=== PATIENT | female | born 1955 | race Caucasian/White ===

== ENCOUNTER 2018-08-21 15:58 | Outpatient (CLI) | payer BC | END 2018-08-21 15:59 | disposition home or self-care (01) | LOC: BICMAMMO 15:58 | PROVIDERS: ATTEND Obstetrics & Gynecology | DX: Z12.31 Encounter for screening mammogram for malignant neoplasm of breast (principal) | CPT/HCPCS: 77063; 77067 ==

== ENCOUNTER 2019-09-10 15:54 | Outpatient (CLI) | payer BC ==
--- NOTE | 2019-09-10 16:33 | MMO ---
Bilateral MAMMO Bilat Screen [facility]. CLINICAL HISTORY: Patient is 64 years old and is seen for screening. The patient has no family history of breast cancer. The patient has a history of cervical cancer at age 26. The patient has a history of left Ultrasound Guided Core Biopsy in 2017 - benign. VIEWS: The views performed were: bilateral craniocaudal with tomosynthesis and bilateral mediolateral oblique with tomosynthesis. FILMS COMPARED: The present examination has been compared to prior imaging studies performed at [facility] on 10/01/2008, and at [facility] on 03/16/2017, 03/23/2017 and 08/21/2018. This study has been interpreted with the assistance of computer-aided detection. MAMMOGRAM FINDINGS: There are scattered fibroglandular densities. There is a stable biopsy clip seen in the left breast. There are no suspicious masses, suspicious calcifications, or new areas of architectural distortion. IMPRESSION: THERE IS NO MAMMOGRAPHIC EVIDENCE OF MALIGNANCY. A ROUTINE FOLLOW-UP MAMMOGRAM IN 1 YEAR IS RECOMMENDED. THE RESULTS OF THIS EXAM WERE SENT TO THE PATIENT. ACR BI-RADS Category 2 - Benign finding MAMMOGRAPHY NOTE: 1. A negative mammogram report should not delay a biopsy if a dominant of clinically suspicious mass is present. 2. Approximately 10% to 15% of breast cancers are not detected by mammography. 3. Adenosis and dense breasts may obscure an underlying neoplasm. Reported by: HALLE PELAEZ MD Electonically Signed: [id number]
== END 2019-09-10 15:55 | disposition home or self-care (01) ==
LOC: BICMAMMO 15:54
PROVIDERS: ATTEND Family Medicine
DX: Z12.31 Encounter for screening mammogram for malignant neoplasm of breast (principal)
CPT/HCPCS: 77063; 77067

== ENCOUNTER 2021-01-21 10:05 | Outpatient (CLI) | payer BC ==
--- NOTE | 2021-01-21 11:52 | MRI ---
MR the lumbar spine with and without contrast: 01/21/2021 History: Low back pain with radiating pain into bilateral thighs, bilateral lower extremity radiculop athy COMPARISON: 03/26/2014 TECHNIQUE: Multiplanar multisequence MR images were obtained of lumbar spine with and without IV cont rast FINDINGS: On the basis of 5 lumbar type vertebral bodies, conus medullaris terminates at theL1-2 level. The sagittal STIR imaging demonstrates no focal area of osseous marrow edema. T12-L1:Mild bilateral facet hypertrophy and disc space narrowing with no significant central canal or neural foraminal stenosis. L1-2:There is disc space narrowing with disc desiccation and mild disc space narrowing and mild disc bulge. Mild bilateral facet hypertrophy, left greater than right. No significant central canal or neural foraminal stenosis. L2-3:There is disc space narrowing and disc desiccation with mild bilateral facet hypertrophy. Mild b ilateral neural foraminal stenosis. No significant central canal stenosis. L3-4: Prominent bilateral facet hypertrophy and hypertrophy of the ligamentum flavum with fluid withi n bilateral facet joints. There is disc space narrowing with disc desiccation and mild disc bulge. There is severe central canal stenosis secondary to bilateral facet disease, disc bulge, and a medial ly projecting 4-5 mm synovial cyst emanating from the right facet joint. Moderate/severe right and mild left neural foraminal stenosis. L4-5: There is bilateral facet hypertrophy. There is disc space narrowing with disc desiccation and m ild disc bulge. Moderate/severe bilateral neural foraminal stenosis. No significant central canal stenosis. L5-S1: There is prominent facet hypertrophy bilaterally, especially on the right. There is disc space narrowing with disc desiccation and mild disc bulge. No central canal stenosis. Severe left and moderate/severe right neural foraminal stenosis. Image retroperitoneal structures demonstratemultiple incompletely assessed T2 hyperintense renal lesi ons most consistent with cysts. The postcontrast imaging of the lumbar spine demonstrates no abnormal enhancement involving the siena nts of the thecal sac, the imaged osseous structures, or the intervertebral discs. IMPRESSION: Multilevel degenerative change of the lumbar spine as detailed above.
[2021-01-21] MEDS ORDERED: Magnevist 469MG/ML 20 ML VIAL ONE (12:06)
--- NOTE | 2021-01-21 12:08 | RAD ---
Lumbar spine 5 views: 01/21/2021 HISTORY: Sharp pain from the back radiating into the legs FINDINGS: There is multilevel disc space narrowing with anterior and lateral osteophyte formation thr oughout the lumbar spine. Most prominent lateral osteophyte formation on the right is at L1-2 and on the left is at L2-3. There is disc space narrowing with degenerative endplate change and anterior osteophyte formation at L4-5 and L5-S1 with multilevel lower lumbar spine facet hypertrophic change. The neutral lateral examination demonstrates no anterolisthesis or retrolisthesis. On the flexion imaging there is anterolisthesis at L3-4 measuring 4-5 mm. No anterolisthesis or retro listhesis noted on the extension imaging. No acute fracture is evident. IMPRESSION: Multilevel lumbar spine degenerative change as detailed above. Flexion imaging demonstrat es 5 mm of anterolisthesis at L3-4.
== END 2021-01-21 10:06 | disposition home or self-care (01) ==
LOC: BICMRI 10:05
PROVIDERS: ATTEND Neurological Surgery
DX: M48.062 Spinal stenosis, lumbar region with neurogenic claudication (principal); M54.5 Low back pain; M47.816 Spondylosis without myelopathy or radiculopathy, lumbar region; M43.16 Spondylolisthesis, lumbar region
CPT/HCPCS: 72110; 72158; 82565; A9579

== ENCOUNTER 2021-03-02 11:22 | Outpatient (CLI) | payer BC ==
[2021-03-02 12:30] LABS: Hemoglobin 12.6 g/dL (12.0-15.5); Mean Corpuscular HGB CONC 31.1 g/dL (32.0-36.0); Mean Corpuscular Hemoglobin 28.1 pg (27.0-33.0); Mean Corpuscular Volume 90.4 fl (81.6-98.3); Mean Platelet Volume 10.3 fl (7.4-10.4); Platelet Count 261 10x3/uL (150-450); Red Blood Cell (RBC) Count 4.48 10x6/uL (3.90-5.03); White Blood Cell (WBC) Count 5.8 10x3/uL (3.5-10.5)
[2021-03-02 12:38] LABS: Anion Gap 12 mmol/L (10-20); BUN (Urea Nitrogen) 21 mg/dL (9.8-20.1); Calc. Creatinine Clearance 0 mL/min (70-130); Calcium 9.2 mg/dL (7.8-10.44); Carbon Dioxide 30 mmol/L (23-31); Chloride 103 mmol/L (98-107); Glucose 87 mg/dL (80-115); Potassium 4.6 mmol/L (3.5-5.1); Sodium 140 mmol/L (136-145)
[2021-03-02 21:22] LABS: SARS-CoV-2 PCR by NAA Not Detected (NotDetected)
== END 2021-03-02 11:23 | disposition home or self-care (01) ==
LOC: LABBT 11:22
PROVIDERS: ATTEND Neurological Surgery
DX: Z01.818 Encounter for other preprocedural examination (principal); Z20.822 Contact with and (suspected) exposure to COVID-19
CPT/HCPCS: 80048; 85027; 93005; 93010; U0003; U0005

== ENCOUNTER 2021-03-07 05:58 | Observation (INO) | payer BC ==
[2021-03-07] MEDS ORDERED: Fentanyl 100 MCG/2 ML VIAL ONE ×4 (06:54→10:07)
[2021-03-07] MEDS ORDERED: Midazolam HCl 2 mg/2 ml Vial ONE (07:10)
[2021-03-07] MEDS ORDERED: Propofol 1,000 MG/100 ML VIAL IV ONE (07:10)
[2021-03-07] MEDS ORDERED: Ketorolac Tromethamine 30 MG/ML VIAL ONE (07:30)
[2021-03-07] MEDS ORDERED: Rocuronium Bromide 10 MG/ML (10ML VIAL) ONE (07:30)
[2021-03-07] MEDS ORDERED: Glycopyrrolate 0.2 MG/ML 5 ML SYRINGE ONE (07:30)
[2021-03-07] MEDS ORDERED: Dexamethasone 20 MG/5 ML VIAL ONE (07:30)
[2021-03-07] MEDS ORDERED: Ondansetron PF 4 MG/2 ML Vial ONE (07:30)
[2021-03-07] MEDS ORDERED: Lidocaine 1% PF 5 ML VIAL ONE (07:30)
[2021-03-07] MEDS ORDERED: PROPOFOL 200 MG/20 ML VIAL ONE (07:30)
[2021-03-07] MEDS ORDERED: Promethazine HCl 25 MG/ML VIAL SLOW IVP PRN (08:00)
[2021-03-07] MEDS ORDERED: Ondansetron HCl/PF 4 MG/2 ML Vial IVP PRN (08:00)
[2021-03-07] MEDS ORDERED: Promethazine HCl 25 MG/ML VIAL IM PRN ×2 (08:00→13:45)
[2021-03-07] MEDS ORDERED: Meperidine HCl/PF 25 MG/ML VIAL SLOW IVP PRN (08:00)
[2021-03-07 11:31] VITALS: BMI 39.6
[2021-03-07] MEDS ORDERED: Ondansetron PF 4 MG/2 ML Vial SLOW IVP PRN (13:34)
[2021-03-07] MEDS ORDERED: Mag-Al 1200 mg/1200 mg/30 ML UDCUP PO PRN (13:45)
[2021-03-07] MEDS ORDERED: Morphine 4 MG/ML VIAL SLOW IVP PRN (13:45)
[2021-03-07] MEDS ORDERED: Promethazine HCl 12.5 MG SUPP PR PRN (13:45)
[2021-03-07] MEDS ORDERED: Milk Of Magnesia 30 ML UDCUP PO PRN (13:45)
[2021-03-07] MEDS ORDERED: Promethazine 25 MG TAB PO PRN (13:45)
[2021-03-07] MEDS ORDERED: tiZANidine HCl 4 MG TAB PO PRN (13:45)
[2021-03-07] MEDS ORDERED: diphenhydrAMINE 50 MG/ML VIAL IVP PRN (13:45)
[2021-03-07] MEDS ORDERED: traMADol HCl 50 MG TAB PO PRN (13:45)
[2021-03-07] MEDS ORDERED: diphenhydrAMINE 25 MG CAP PO PRN (13:45)
[2021-03-07] MEDS ORDERED: Morphine 2 MG/ML VIAL SLOW IVP PRN (13:45)
[2021-03-07] MEDS ORDERED: Acetaminophen/Codeine 30-300mg Tablet PO PRN ×2 (13:45)
[2021-03-07] MEDS: Sodium Chloride 0.9% 1,000 ML IV SCH (14:54)
[2021-03-07] MEDS: CEFAZOLIN 2 GM in Premix Bag 1 BAG IVPB SCH ×2 (14:54→22:11)
[2021-03-07] MEDS: traMADol HCl 50 MG TAB PO PRN (15:10)
[2021-03-07] MEDS ORDERED: Cyclobenzaprine 10 MG TAB PO SCH (21:00)
[2021-03-08] MEDS: Sodium Chloride 0.9% 1,000 ML IV SCH (01:53)
[2021-03-08] MEDS: CEFAZOLIN 2 GM in Premix Bag 1 BAG IVPB SCH (05:25)
[2021-03-08 08:14] VITALS: BP 134/63; TEMP 98.1
[2021-03-08] MEDS ORDERED: Cyanocobalamin (Vitamin B-12) 1,000 MCG TAB PO SCH (09:00)
[2021-03-08] MEDS ORDERED: Calcium Carbonate 600 MG TAB PO SCH (09:00)
[2021-03-08] MEDS ORDERED: GLUCOSAMINE PO SCH (09:00)
[2021-03-08] MEDS ORDERED: Ascorbic Acid 500 mg Chewable Tablet PO SCH (09:00)
[2021-03-08] MEDS ORDERED: CHONDROITIN PO SCH (09:00)
[2021-03-08] MEDS ORDERED: Multivit, Therapeutic 1 TAB PO SCH (09:00)
[2021-03-08] MEDS: traMADol HCl 50 MG TAB PO PRN (10:05)
== END 2021-03-08 13:01 | disposition home or self-care (01) ==
LOC: SDC 05:58 → ONC 09:50
PROVIDERS: ADMIT Neurological Surgery; ATTEND Neurological Surgery
PROC: 0SG0071 Fusion of Lumbar Vertebral Joint with Autologous Tissue Substitute, Posterior Approach, Posterior Column, Open Approach (ICD-10-PCS; principal; 2021-03-07)
DX: M43.16 Spondylolisthesis, lumbar region (principal); M48.062 Spinal stenosis, lumbar region with neurogenic claudication; M71.38 Other bursal cyst, other site; K21.9 Gastro-esophageal reflux disease without esophagitis; M19.90 Unspecified osteoarthritis, unspecified site; Z87.891 Personal history of nicotine dependence; Z79.899 Other long term (current) drug therapy; Z88.5 Allergy status to narcotic agent; Z88.8 Allergy status to other drugs, medicaments and biological substances; Z91.030 Bee allergy status
CPT/HCPCS: 76000; 96365; 96366; 96376; C1713; C1768; G0378; J0690; J1100; J1885; J2250; J2405; J2704; J3010; J3370; J3490

== ENCOUNTER 2022-08-10 14:10 | Outpatient (CLI) | payer MEDICARE, BC ==
[2022-08-10 16:22] LABS: Hemoglobin 12.1 g/dL (12.0-15.5); Mean Corpuscular HGB CONC 31.7 g/dL (32.0-36.0); Mean Corpuscular Hemoglobin 28.6 pg (27.0-33.0); Mean Corpuscular Volume 90.3 fl (81.6-98.3); Mean Platelet Volume 10.9 fl (7.4-10.4); Platelet Count 265 10x3/uL (150-450); RBC Distribution Width 13.8 % (11.5-14.5); Red Blood Cell (RBC) Count 4.23 10x6/uL (3.90-5.03); White Blood Cell (WBC) Count 6.1 10x3/uL (3.5-10.5)
== END 2022-08-10 14:11 | disposition home or self-care (01) ==
LOC: LABBT 14:10
PROVIDERS: ATTEND Orthopaedic Surgery Hand Surgery
DX: Z01.818 Encounter for other preprocedural examination (principal); M65.341 Trigger finger, right ring finger; Z20.822 Contact with and (suspected) exposure to COVID-19
CPT/HCPCS: 85027; 87811; 93005; 93010

== ENCOUNTER 2022-08-15 05:42 | Day surgery (SDC) | payer MEDICARE, BC ==
[2022-08-14 11:04] VITALS: BMI 42.1
[2022-08-15] MEDS ORDERED: Bacitracin Zinc Ointment 30 gm TUBE ONE (06:35)
[2022-08-15] MEDS ORDERED: Neomycin-Polymyxin 1 ML AMP ONE (06:36)
[2022-08-15] MEDS ORDERED: Bupivacaine PF 0.5% 30 ML VIAL ONE (06:36)
[2022-08-15] MEDS ORDERED: Betamet Acet/Betamet Na Ph 30 MG/5 ML VIAL ONE (06:36)
[2022-08-15] MEDS ORDERED: fentaNYL Citrate/PF 100 MCG/2 ML SYRINGE ONE (06:45)
[2022-08-15] MEDS ORDERED: Propofol 1,000 MG/100 ML VIAL IV ONE (06:58)
[2022-08-15] MEDS ORDERED: CEFAZOLIN 2 GM VIAL ONE (07:08)
[2022-08-15] MEDS ORDERED: Sodium Chloride 0.9% 100 ML ONE (07:08)
[2022-08-15] MEDS ORDERED: Ketamine 50 MG/ML (10ML VIAL) ONE (07:13)
[2022-08-15] MEDS ORDERED: PROPOFOL 200 MG/20 ML VIAL ONE (07:15)
[2022-08-15] MEDS ORDERED: Ketorolac Tromethamine 30 MG/ML VIAL ONE (08:25)
== END 2022-08-15 08:45 | disposition home or self-care (01) ==
LOC: SDC 05:42
PROVIDERS: ATTEND Orthopaedic Surgery Hand Surgery
PROC: 0LN70ZZ Release Right Hand Tendon, Open Approach (ICD-10-PCS; principal; 2022-08-15)
DX: M65.341 Trigger finger, right ring finger (principal); K21.9 Gastro-esophageal reflux disease without esophagitis; Z87.891 Personal history of nicotine dependence; Z88.5 Allergy status to narcotic agent; Z88.8 Allergy status to other drugs, medicaments and biological substances; Z91.013 Allergy to seafood
CPT/HCPCS: J0690; J0702; J1885; J2704; J3490; S0020